=== PATIENT | female | born 1980 | race Two or more races ===

== ENCOUNTER 2018-05-07 12:07 | Emergency (ER) | payer MEDICAID, OTHER ==
[~2018-05-07] VITALS: Ht 160 cm; Wt 67.0 kg
[2018-05-07 12:16] VITALS: BP 151/92
[2018-05-07 12:56] LABS: BASOPHILS # (AUTO) 0.04 x10^3/uL (0-0.1); BASOPHILS % (AUTO) 1 % (0-1); EOSINOPHILS # (AUTO) 0.08 x10^3/uL (0-0.4); EOSINOPHILS % (AUTO) 1 % (1-7); LYMPHOCYTES # (AUTO) 1.71 x10^3/uL (1-3.4); LYMPHOCYTES % (AUTO) 29 % (22-44); MD NO; MEAN CORPUSCULAR HEMOGLOBIN 32.5 pg (27.0-34.8); MEAN CORPUSCULAR HGB CONC 34.7 g/dL (32.4-35.8); MEAN CORPUSCULAR VOLUME 93.6 fL (80-100); MEAN PLATELET VOLUME 9.1 fL (7.4-10.4); MONOCYTES # (AUTO) 0.37 x10^3/uL (0.2-0.8); MONOCYTES % (AUTO) 6 % (2-9); NEUTROPHILS % (AUTO) 62 % (42-75); PLATELET COUNT 228 x10^3/uL (130-400); RED BLOOD COUNT 5.02 x10^6/uL (3.82-5.3)
--- NOTE | 2018-05-07 12:57 | NUR ---
PT RECEIVED ROOM. IN US AT THIS TIME. US TECH AWARE TO RETURN PT TO ED ROOM 29
[2018-05-07 13:07] LABS: ALBUMIN 4.1 g/dL (3.4-5.0); ANION GAP 6 mmol/L (5-15); CALCIUM 8.8 mg/dL (8.5-10.1); CHLORIDE 109 mmol/L (98-107); CREATININE 0.72 mg/dL (0.55-1.02)
[2018-05-07] MEDS ORDERED: KETOROLAC 30 MG/1 ML IM ONE (13:30)
--- NOTE | 2018-05-07 13:39 | NUR ---
PT CO VB X LAST NIGHT W/ MULTIPLE PADS/HR X TWO HOURS LAST NIGHT. +ABD CRAMPING. DENIES N/V/D/URINARY SYMPTOMS. LMP: JANUARY. G4,P2. PT TEARFUL. PWD; NAD NOTED. STRAIGHT CATH COMPLETED. UA COLLECTED AND WALKED TO LAB.
[2018-05-07] MEDS ORDERED: KETOROLAC 30 MG/1 ML ONE (14:03)
[2018-05-07 14:16] LABS: MICROSCOPIC NOT IND
[2018-05-07 14:25] LABS: CULTURE INDICATED? NO
--- NOTE | 2018-05-07 14:55 | NUR ---
SBAR report received from Jossy WEBBER. Pt resting on dennis. Jossy WEBBER, to check for discharge paperwork.
--- NOTE | 2018-05-07 15:06 | NUR ---
PT REPORTS IMPROVEMENT IN PAIN WITH MEDICATIONS. DC EDUCATION PROVIDED, PT DEMONSTRATES UNDERSTANDING. PT AMBULATED STEADILY TO DC IWTH RN. FRIEND PRESENT TO TRANSPORT HOME
== END 2018-05-07 15:09 | disposition home or self-care (01) ==
LOC: ED 14:55
DX: O46.91 Antepartum hemorrhage, unspecified, first trimester (principal); N94.4 Primary dysmenorrhea; R10.2 Pelvic and perineal pain; Z3A.01 Less than 8 weeks gestation of pregnancy
CPT/HCPCS: 36415; 76801; 80048; 81003; 82040; 84702; 85025; 86901; 96372; 99284; J1885